=== PATIENT | male | born 1960 | race Caucasian/White ===

== ENCOUNTER → 2018-12-12 | Outpatient (REF) | payer OTHER | LOC: M LAB LCGH 09:38 | PROVIDERS: ATTEND Surgery | DX: D48.5 Neoplasm of uncertain behavior of skin (principal); R22.0 Localized swelling, mass and lump, head ==

== ENCOUNTER → 2021-08-12 | Outpatient (CLI) | payer BC, OTHER, SELFPAY ==
[~2021-08-12] MED LIST: ASPI1CHW3 PO; ATOR40TA75 PO; BASA100I SC; LISI10TA22 PO; METF-839 PO; TRUL10IN SC
== END ==
LOC: M ONCR 14:06
PROVIDERS: ATTEND General Practice
DX: C61 Malignant neoplasm of prostate (principal); E11.9 Type 2 diabetes mellitus without complications; Z92.3 Personal history of irradiation; Z79.899 Other long term (current) drug therapy

== ENCOUNTER 2021-08-26 08:04 | Outpatient (RCR) | payer BC | END 2021-09-03 | LOC: M ONCR 08:04 | PROVIDERS: ATTEND General Practice | DX: C61 Malignant neoplasm of prostate (principal) ==

== ENCOUNTER → 2021-10-04 | Outpatient (RCR) | payer BC | LOC: M ONCR 09-21 08:35 | PROVIDERS: ATTEND General Practice | DX: C61 Malignant neoplasm of prostate (principal) ==

== ENCOUNTER → 2021-11-01 | Outpatient (RCR) | payer BC | LOC: M ONCR 10-05 08:34 | PROVIDERS: ATTEND General Practice | DX: C61 Malignant neoplasm of prostate (principal) ==

== ENCOUNTER 2021-11-02 08:29 | Outpatient (RCR) | payer BC | END 2021-12-02 | LOC: M ONCR 08:29 | PROVIDERS: ATTEND General Practice | DX: C61 Malignant neoplasm of prostate (principal) ==

== ENCOUNTER → 2022-02-02 | Outpatient (CLI) | payer BC | LOC: M ONCR 09:07 | PROVIDERS: ATTEND General Practice | DX: C61 Malignant neoplasm of prostate (principal); F17.210 Nicotine dependence, cigarettes, uncomplicated; Z79.4 Long term (current) use of insulin; Z79.82 Long term (current) use of aspirin; Z79.84 Long term (current) use of oral hypoglycemic drugs; Z92.3 Personal history of irradiation ==

== ENCOUNTER 2023-09-26 06:34 | Day surgery (SDC) | payer BC ==
[~2023-09-26] VITALS: Ht 165.1 cm; Wt 80.3 kg
[~2023-09-26 06:34] MED LIST changes: +ASPI-655 PO; -ASPI1CHW3 PO; +BSS with VANC/TOB/EPI for EYE CASES IR ONE; +CYCLOPENTOLATE 1% OPHTH SOLN 2ML BTL OS SCH; +INSU100I38 SQ; +LIDOCAINE 3.5 % 1ML OPHTH TOPICAL GEL OU ONE; +OFLOXACIN 0.3 % (OCUFLOX) OPTH SOL 5ML OS ONE; +PHENYLEPHRINE 2.5% OPHTH SOL 2ML OS SCH; +PROPARACAINE 0.5% OPHTH SOL 15ML OS ONE; +TROPICAMIDE 1% OPHTH SOLN 15ML OS SCH; +XTAN40CA PO
[2023-09-26] MEDS ORDERED: LIDOCAINE 1% SDV 5ML VIAL As Ordered ONE (06:46)
[2023-09-26] MEDS ORDERED: BSS IRR 500ML/OMIDRIA 4ML IRR BAG (OR ONLY) As Ordered ONE (06:47)
[2023-09-26] MEDS ORDERED: CEFUROXIME 1MG/0.1ML INTRACAMERAL INJ As Ordered ONE (06:47)
[2023-09-26] MEDS ORDERED: MIDAZOLAM INJ 2MG/2ML VIAL As Ordered ONE (07:18)
[2023-09-26] MEDS: OFLOXACIN 0.3 % (OCUFLOX) OPTH SOL 5ML OS SCH ×2 (07:19→07:51)
[2023-09-26] MEDS: PHENYLEPHRINE 2.5% OPHTH SOL 2ML OS SCH ×2 (07:19→07:51)
[2023-09-26] MEDS: CYCLOPENTOLATE 1% OPHTH SOLN 2ML BTL OS SCH ×2 (07:19→07:51)
[2023-09-26] MEDS: TROPICAMIDE 1% OPHTH SOLN 15ML OS SCH ×2 (07:19→07:51)
[2023-09-26] MEDS ORDERED: PROVISC 10 MG/ML 0.85ML SYRINGE As Ordered ONE (09:23)
[2023-09-26 09:47] VITALS: BP 170/80; TEMP 98; O2SAT 96
== END 2023-09-26 09:49 | disposition home or self-care (01) ==
LOC: M SDC 06:34
PROVIDERS: ATTEND Ophthalmology
DX: H25.12 Age-related nuclear cataract, left eye (principal); E11.9 Type 2 diabetes mellitus without complications; C61 Malignant neoplasm of prostate; Z92.21 Personal history of antineoplastic chemotherapy; Z92.3 Personal history of irradiation; Z79.4 Long term (current) use of insulin; Z79.84 Long term (current) use of oral hypoglycemic drugs; Z79.818 Long term (current) use of other agents affecting estrogen receptors and estrogen levels; R32 Unspecified urinary incontinence; F17.218 Nicotine dependence, cigarettes, with other nicotine-induced disorders
CPT/HCPCS: 66984; A4649; J0697; J1097; J2250; V2632